=== PATIENT | female | born 1950 | race Caucasian/White ===

== ENCOUNTER → 2016-12-19 | Outpatient (CLI) | payer BC ==
[2014-06-12 23:23] VITALS: BP 141/64
--- NOTE | 2016-12-20 13:52 | KCIC ---
Bilateral digital screening mammograms: Reason for examination: Routine screening. Comparison is made to previous studies dated 03/28/2013 and 11/13/2009. Interpretation was made with the benefit of CAD. The skin and nipples show no abnormalities. No abnormal axillary lymph nodes are seen. The breast parenchyma shows scattered fibroglandular density. (Breast density: Category B.) There continue to be 2 small circumscribed nodular densities in the 10:00 B position of the right breast which are unchanged and likely represent intramammary lymph nodes. There are no new dominant masses, suspicious calcifications or architectural distortions. Impression: No evidence of malignancy. Recommend routine screening. BI-RADS Category 2: Benign. "Our facility is accredited by the [employer] Mammography [employer]." This patient's information has been entered into a reminder system for the patient to be notified with the results of her examination and a target date for the next mammogram. Electronically signed by: Pamela Watt MD (12/20/2016 1:49 PM) [facility]
== END | disposition home or self-care (01) ==
LOC: KCIC MAMMO 10:07
PROVIDERS: ATTEND Obstetrics & Gynecology
DX: Z12.31 Encounter for screening mammogram for malignant neoplasm of breast (principal)
CPT/HCPCS: G0202; 77067

== ENCOUNTER → 2017-03-16 | Outpatient (CLI) | payer BC | END | disposition home or self-care (01) | LOC: KCIC 09:18 | DX: M51.37 Other intervertebral disc degeneration, lumbosacral region (principal) | CPT/HCPCS: 72110 ==

== ENCOUNTER → 2017-12-29 | Outpatient (CLI) | payer BC ==
[2014-06-12 23:23] VITALS: BP 141/64
--- NOTE | 2017-12-29 15:13 | KCIC ---
Bilateral digital screening mammograms: Reason for examination: Routine screening. Comparison is made to previous studies dated 12/19/2016 and 03/28/2013. Interpretation was made with the benefit of CAD. The skin and nipples show no abnormalities. No abnormal axillary lymph nodes are seen. The breast parenchyma shows scattered fibroglandular density. (Breast density: Category B.) There continues to be 2 small circumscribed lesions at the 10:00 B position of the right breast which are unchanged. There are no new dominant masses, suspicious calcifications or architectural distortions. Impression: No evidence of malignancy. Recommend routine screening. BI-RADS Category 2: Benign. "Our facility is accredited by the [employer] Mammography Program." This patient's information has been entered into a reminder system for the patient to be notified with the results of her examination and a target date for the next mammogram. Electronically signed by: Pamela Watt MD (12/29/2017 3:10 PM) [facility]
== END | disposition home or self-care (01) ==
LOC: KCIC MAMMO 10:42
PROVIDERS: ATTEND Obstetrics & Gynecology
DX: Z12.31 Encounter for screening mammogram for malignant neoplasm of breast (principal)
CPT/HCPCS: 77067

== ENCOUNTER 2021-06-12 15:18 | Emergency (ER) | payer MEDICARE, OTHER ==
[~2021-06-12] VITALS: Ht 175.3 cm; Wt 71.0 kg
[2021-06-12 15:29] VITALS: BP 120/57
[2021-06-12] MEDS ORDERED: LIDOCAINE 2% Multi-Dose 20 ML VIAL. IJ ONE (16:00)
[2021-06-12] MEDS ORDERED: DIPHTH,PERTUSS(ACELL),TET TOX 0.5 ML DISP.SYRIN. VAX IM ONE (16:00)
[2021-06-12] MEDS ORDERED: HYDROcodone/APAP 5/325MG 1 TAB TABLET PO ONE (16:15)
[2021-06-12] MEDS ORDERED: ceFAZolin IM 1 GM VIAL IM ONE (16:45)
--- NOTE | 2021-06-12 17:11 | ED.ADGEN ---
Past Medical History Past Medical History: Other Additional Past Medical Histor: in process of ruling out "myesthnia gravis" Past Surgical History: No Surgical History Smoking Status: Never Smoker Alcohol Use: None Drug Use: None General Adult EDM: Chief Complaint: THUMB HPI: HPI: Patient is a 70 year old female coming in for right ankle and left thumb injuries after a fall. Patient states she had one on track when she stepped into a hole and rolled her right ankle and fell forward catching herself on her left hand. Has deformity to thumb and laceration now. She has been able to walk on her ankle and feels like she does sprained it. Last tetanus unknown. Review of Systems: Review of Systems: All other systems within normal limits except for as noted in the HPI Current Medications: Current Medications Medications (Trade) Dose Ordered Sig/Ge Start Time Stop Time Status Last Admin Dose Admin Acetaminophen/ Hydrocodone Bitart (Lortab 5/325) 1 tab 1X ONCE 06/12/21 16:15 06/12/21 16:16 DC 06/12/21 16:19 1 TAB Cefazolin Sodium (Ancef Im) 1 gm 1X ONCE 06/12/21 16:45 06/12/21 16:46 DC 06/12/21 17:00 1 GM Diphtheria/ Tetanus/Acell Pertussis (Boostrix) 0.5 ml ONCE ONCE 06/12/21 16:00 06/12/21 16:01 DC 06/12/21 16:09 0.5 ML Lidocaine HCl (Lidocaine 2% 20ml Vial) 20 ml 1X ONCE 06/12/21 16:00 06/12/21 16:01 DC 06/12/21 16:10 20 ML Allergies: Allergies: Allergies Coded Allergies Type Severity Reaction Last Updated Verified No Known Drug Allergies 03/14/14 No Physical Exam: PE: Constitutional: Well developed, well nourished, no acute distress, non-toxic appearance. [] HENT: Normocephalic, atraumatic, bilateral external ears normal, nose normal. [] Eyes: PERRLA, conjunctiva normal, no discharge. [] Neck: No rigidity, supple, no stridor. [] Cardiovascular: Regular rate and rhythm, brisk cap refill [] Lungs & Thorax: Non labored symmetric respirations, no tachypnea or respiratory distress [] Abdomen: Soft, nondistended. Skin: Warm, dry, no erythema, no rash. [] Back: Unremarkable Extremities: No deformities, range of motion grossly intact, no lower extremity edema. Dorsal deformity of left thumb, volar aspect with a laceration with exposed bone. [] Neurologic: Alert and oriented X 3, no focal deficits noted. [] Psychologic: Affect normal, judgement normal, mood normal. [] Current Patient Data: Vital Signs: Vital Signs Date Time Temp Pulse Resp B/P (MAP) Pulse Ox O2 Delivery O2 Flow Rate FiO2 06/12/21 16:19 18 97 Room Air 06/12/21 15:29 98.4 85 120/57 (78) 98.4 EKG: EKG: [] Heart Score: C/O Chest Pain: No Risk Factors: Risk Factors: DM, Current or recent (<one month) smoker, HTN, HLP, family history of CAD, obesity. Risk Scores: Score 0 - 3: 2.5% MACE over next 6 weeks - Discharge Home Score 4 - 6: 20.3% MACE over next 6 weeks - Admit for Clinical Observation Score 7 - 10: 72.7% MACE over next 6 weeks - Early Invasive Strategies Radiology/Procedures: Radiology/Procedures: Patient at this time is 2% lidocaine without epinephrine via digital block of the left thumb. Wound irrigated to 50 cc NS. Reduction performed and confirmed with x-ray [facility] [address] [place] [address] IMAGING REPORT Signed PATIENT: LEYDI FLORES ACCOUNT: [id number] : 1950 LOCATION: ER AGE: 70 SEX: F EXAM STATUS: DEP ER ORD. PHYSICIAN: MARY JONES MD REASON: inversion PROCEDURE: ANKLE RIGHT 2V Exam: Right ankle 2 views INDICATION: Inversion injury TECHNIQUE: Frontal and lateral views of the right ankle Comparisons: None FINDINGS: Bone mineralization is normal. Joint spaces are well-maintained. Soft tissues are unremarkable. Mild cortical irregularity along the superior aspect of the anterior talar process. IMPRESSION: Cortical irregularity along the superior aspect of the anterior talar process. Correlate with point tenderness for fracture. Electronically signed by: Shannon Fermin MD (06/12/2021 7:27 PM) [facility] DICTATED and SIGNED BY: SHANNON FERMIN MD DATE: 06/12/21 [address] [place] [address] IMAGING REPORT Signed PATIENT: LEYDI FLORES ACCOUNT: [id number] : 1950 LOCATION: ER AGE: 70 SEX: F EXAM STATUS: REG ER ORD. PHYSICIAN: MARY JONES MD REASON: dislocation PROCEDURE: FINGER(S) LEFT XR FINGER(S)_LEFT 2+VIEWS_RT Clinical Indication: Reason: dislocation / Spl. Instructions: / History: Comparison: None. Findings: AP hand and collimated lateral and AP views of the thumb. There is dislocation of the thumb interphalangeal joint. The distal phalanx is posteriorly and laterally displaced with bony overlap of approximately 6 mm. There is soft tissue swelling. No acute fracture is definitely seen. Bony articulations of the hand otherwise maintained. IMPRESSION: There is dislocation of the IP joint of the thumb. Electronically signed by: Rob Mills MD (06/12/2021 5:18 PM) [id number] DICTATED and SIGNED BY: ROB MILLS MD DATE: 06/12/[address] [address] IMAGING REPORT Signed PATIENT: LEYDI FLORES ACCOUNT: [id number] : 1950 LOCATION: ER AGE: 70 SEX: F EXAM STATUS: DEP ER ORD. PHYSICIAN: MARY JONES MD REASON: reduction PROCEDURE: FINGER(S) LEFT Exam: Left finger 3 views INDICATION: Reduction TECHNIQUE: Frontal, lateral and oblique views of the first digit. Comparisons: Radiograph earlier today FINDINGS: Improved alignment at the interphalangeal joint of the first digit. Mild surrounding soft tissue swelling. Bone mineralization is normal. No acute or healed fractures. IMPRESSION: Improved alignment at the first digit interphalangeal joint. Electronically signed by: Shannon Fermin MD (06/12/2021 7:34 PM) [facility] DICTATED and SIGNED BY: SHANNON FERMIN MD DATE: 06/12/211931 Course & Med Decision Making: Course & Med Decision Making Pertinent Labs and Imaging studies reviewed. (See chart for details) Irregularity of the anterior talar bone, patient states she had a previous fracture there and does not currently have any point tenderness in that loca tion. Discussed plan of care with orthopedic doctor, Dr. Lerma, agrees with plan of care to irrigate wound, reduce and start on antibiotics. Will Steri-Strip open part of wound since it is well approximated and to allow drainage of any contaminants [] Dragon Disclaimer: Dragon Disclaimer: This electronic medical record was generated, in whole or in part, using a voice recognition dictation system. Departure Departure Impression: Primary Impression: Open dislocation of thumb Additional Impression: Right ankle sprain Disposition: HOME / SELF CARE / HOMELESS Condition: STABLE Referrals: CASSIE ASHLEY PA-C (PCP) Patient Instructions: RICE - Routine Care for Injuries Additional Instructions: Call Monday morning to follow-up with a hand specialist Number available options are [facility] hand and upper extremity surgery center: [phone] or [facility] plastic surgery specialists: [phone] Scripts Hydrocodone Bit/Acetaminophen (HYDROCODONE-APAP 5-325 ) 1 Tab Tablet 1 TAB PO PRN Q6HRS PRN for PAIN for 3 Days, #12 TAB 0 Refills Prov: MARY JONES MD 06/12/21 Amoxicillin/Potassium Clav (AMOX TR-K CLV 875-125 MG TAB) 1 Each Tablet 1 TAB PO BID for antibiotic, #20 TAB Prov: MARY JONES MD 06/12/21 Problem Qualifiers MARY JONES MD Jun 12, 2021 17:11
--- NOTE | 2021-06-12 17:21 | RAD ---
XR FINGER(S)_LEFT 2+VIEWS_RT Clinical Indication: Reason: dislocation / Spl. Instructions: / History: Comparison: None. Findings: AP hand and collimated lateral and AP views of the thumb. There is dislocation of the thumb interphalangeal joint. The distal phalanx is posteriorly and latera lly displaced with bony overlap of approximately 6 mm. There is soft tissue swelling. No acute fractu re is definitely seen. Bony articulations of the hand otherwise maintained. IMPRESSION: There is dislocation of the IP joint of the thumb. Electronically signed by: Rob Mills MD (06/12/2021 5:18 PM) [id number]
[2021-06-12] MEDS ORDERED: HYDR-2761 PO ×2 (18:08→18:09)
[2021-06-12] MEDS ORDERED: AMOX1TAB11 PO (18:08)
--- NOTE | 2021-06-12 19:29 | RAD ---
Exam: Right ankle 2 views INDICATION: Inversion injury TECHNIQUE: Frontal and lateral views of the right ankle Comparisons: None FINDINGS: Bone mineralization is normal. Joint spaces are well-maintained. Soft tissues are unremarkable. Mild cortical irregularity along the superior aspect of the anterior talar process. IMPRESSION: Cortical irregularity along the superior aspect of the anterior talar process. Correlate with point t enderness for fracture. Electronically signed by: Shannon Jordan MD (06/12/2021 7:27 PM) [facility]
--- NOTE | 2021-06-12 19:36 | RAD ---
Exam: Left finger 3 views INDICATION: Reduction TECHNIQUE: Frontal, lateral and oblique views of the first digit. Comparisons: Radiograph earlier today FINDINGS: Improved alignment at the interphalangeal joint of the first digit. Mild surrounding soft tissue swel ling. Bone mineralization is normal. No acute or healed fractures. IMPRESSION: Improved alignment at the first digit interphalangeal joint. Electronically signed by: Shannon Jordan MD (06/12/2021 7:34 PM) [facility]
[2021-06-28] MEDS ORDERED: HYDR-2761 PO (12:38)
== END 2021-06-12 18:25 | disposition home or self-care (01) ==
LOC: ER 15:18
DX: S93.401A Sprain of unspecified ligament of right ankle, initial encounter (principal); S63.125A Dislocation of interphalangeal joint of left thumb, initial encounter; W18.39XA Other fall on same level, initial encounter; Y93.89 Activity, other specified; Y92.89 Other specified places as the place of occurrence of the external cause; Y99.8 Other external cause status
CPT/HCPCS: 26742; 73140; 73600; 90471; 90715; 96372; 99284; J0690

== ENCOUNTER 2021-06-28 09:56 | Day surgery (SDC) | payer MEDICARE, OTHER ==
[~2021-06-28] VITALS: Ht 175.3 cm; Wt 71.8 kg
[~2021-06-28 09:56] MED LIST: AMOX1TAB11 PO; HYDR-2761 PO; HYDROmorphone 2 MG/ML INJ. IVP PRN; IV RINGERS,LACTATED 1000ML 1,000 ML IV SCH; MORPHINE SULFATE 2 MG/ML INJ. IVP PRN; PROCHLORPERAZINE 10 MG/2 ML VIAL. IVP PRN; ceFAZolin SODIUM IV Push 1 GM VIAL. IVP PRN; fentaNYL PF VIAL 100 MCG/2 ML VIAL IVP PRN
[2021-06-28 10:26] VITALS: BP 162/77
[2021-06-28] MEDS ORDERED: ONDANSETRON PF 4 MG/2 ML VIAL. ONE (10:27)
[2021-06-28] MEDS ORDERED: PROPOFOL 10 MG/ML (20ML) VIAL. IV ONE (10:27)
[2021-06-28] MEDS ORDERED: LIDOCAINE 2% PF 5 ML VIAL. ONE (10:27)
[2021-06-28] MEDS ORDERED: DEXAMETHASONE SOD PHOS 4 MG/ML VIAL ONE (10:27)
[2021-06-28] MEDS ORDERED: fentaNYL PF VIAL 100 MCG/2 ML VIAL ONE (10:43)
[2021-06-28] MEDS ORDERED: LIDOCAINE 1%/EPI 1:100,000 20 ML VIAL. ONE (11:32)
[2021-06-28] MEDS ORDERED: ePHEDrine PF IN SALINE 50 MG/10 ML SYRINGE. IV ONE (11:53)
[2021-06-28] MEDS ORDERED: ceFAZolin SODIUM IV Push 1 GM VIAL. IVP ONE (11:53)
[2021-06-28] MEDS ORDERED: GLYCOPYRROLATE 1 MG/5 ML VIAL. ONE (11:53)
[2021-06-28] MEDS ORDERED: SEVOFLURANE 31 TO 60 MINUTES. IH ONE (12:04)
[2021-06-28] MEDS ORDERED: PHENYLEPHRINE in 0.9% NACL PF 1 MG/10 ML SYRINGE. IV ONE (12:14)
[2021-06-28] MEDS ORDERED: BUPIVACAINE-EPI 0.25%-1:200000 MPF 30 ML VIAL. ONE (12:22)
--- NOTE | 2021-06-28 12:36 | PDOC4 ---
Operative Note Operative Note Operative Note: Preoperative Diagnosis: Back mass x2 Postoperative Diagnosis: Same Procedure: Excision of back mass x2, 5 X 3 cm, 4 X 2 cm, no margins, subcutaneous Surgeon: Francisco Fundraising Director: Candy WAGGONER Anesthesia: General EBL: 10 ml Specimen: Upper back mass to pathology, mid back mass to pathology Drains: None Complications: None Indication: The patient is a 70-year-old female who is referred because of 2 bothersome back masses. Examination shows subcutaneous masses measuring 5 x 3 and 4 x 2 cm consistent with lipomas. One is located in the superior back near the neck. The second is more inferior to the left of midline. The patient requests excision. The risks of surgery were discussed which include bleeding, infection, recurrence, pain, anesthetic risk, potential need for additional alma rosa adrien procedure. She understands and would like to proceed. Description: The patient was taken the operating room and placed supine on the operating table. General anesthesia was performed. The back was prepped with ChloraPrep and draped with sterile towels, sheets, and an Ioban. We began with the superiorly located mass. Incision was made directly overlying the mass. Cautery dissection was carried down into the subcutaneous tissues. The mass was comprised of lobulated adipose tissue consistent with a lipoma. Due to its architecture was essentially retrieved piecemeal. The total dimensions measured 4 x 2 cm and there were no margins of excision. Hemostasis was achieved with cautery. Subcutaneous tissue was closed with 3-0 Vicryl and skin was appro ximated with 4-0 Monocryl. In a similar manner an incision was made directly overlying the inferiorly located mass. Cautery dissection was carried down to subcutaneous tissues. Similar to before the mass was comprised of lobulated adipose tissue. This also was retrieved essentially piecemeal. The total dimensions measured 5 x 3 cm with no margins excised. The mass was located in the subcutaneous tissues. Hemostasis was achieved with cautery. Subcutaneous tissue was closed with 3-0 Vicryl. Skin was closed with 4 Monocryl. Steri- Strips and sterile dressings were applied. The patient tolerated the procedure well and was sent to the recovery room in stable condition. At the end the case all counts were correct BRANDON VOGT MD Jun 28, 2021 12:36
[2021-06-28] MEDS ORDERED: HYDR-2761 PO (12:38)
--- NOTE | 2021-06-28 12:40 | DISCH ---
DISCHARGE INSTRUCTIONS Condition on Discharge Condition on Discharge: Unstable Activity After Discharge Activity Instructions for Disc: Activity as tolerated Diet after Discharge Diet after Discharge: Regular Wound Incision Care Wound/Incision Care: Other, see below (keep dressing clean and dry X 72 hours, may then remove and shower) Follow-Up Follow up with: Dr Vogt in office in 2 weeks, call for appt [phone] BRANDON VOGT MD Jun 28, 2021 12:40
[2021-06-28 13:10] VITALS: BP 118/78
[2021-06-28] MEDS ORDERED: HYDROcodone/APAP 5/325MG 1 TAB TABLET PO ONE (13:15)
--- NOTE | 2021-06-29 17:10 | PATHOLOGY ---
[facility] Accession Number: [id number] . 01 Material submitted: . PART A: back - UPPER BACK MASS. Modifiers: upper PART B: back - MID BACK MASS. Modifiers: mid . 01 Clinical history: . MASS TO BACK EXCISION OF BACK MASS . 02 Diagnosis: A. Segments of fibroadipose tissue, upper back mass: - Lipoma. . B. Segments of fibroadipose tissue, mid back mass: - Lipoma. . (JPM:enoch; 06/29/2021) MBR 06/29/2021 1319 Local . 02 Electronically signed: . Aron Vieira MD, Pathologist NPI- [id number] . 01 Gross description: . A. The specimen is received in formalin, labeled "Ayse, Karli, upper back mass" and consists of multiple previously disrupted, heavily fragmented fatty irregular tissues aggregating 6.0 x 5.0 x 1.8 cm. Sectioning reveals fatty, glistening and homogenous cut surfaces. Accounting Consultant sections are submitted in 2 cassettes. . B. The specimen is received in formalin, labeled "Ayse, Karli, mid back mass" and consists of multiple previously disrupted and fragmented fatty irregular tissues aggregating 5.4 x 4.5 x 1.4 cm. Sectioning reveals fatty, glistening and homogenous cut surfaces. Accounting Consultant sections are submitted in 2 cassettes.(NUNAM IQUA; 06/28/2021) DKA/DKA 06/28/2021 1713 Local . 02 Pathologist provided ICD-10: D17.1 . 02 CPT . 286909, [id number] Specimen Comment: A courtesy copy of this report has been sent to [phone], [phone] Specimen Comment: [id number] Specimen Comment: Report sent to / DR ASHLEY Performed at: 01 [facility] [place] [id number] [facility] [address], [place], [place] [id number] MD Sammy Gary MD Phone: [phone] Performed at: 02 [facility] [address], [place] [id number] MD Aron Vieira MD Phone: [phone]
== END 2021-06-28 13:30 | disposition home or self-care (01) ==
LOC: SURG 09:56
PROVIDERS: ATTEND Surgery
DX: D17.1 Benign lipomatous neoplasm of skin and subcutaneous tissue of trunk (principal); R22.2 Localized swelling, mass and lump, trunk; Z79.899 Other long term (current) drug therapy; Z98.890 Other specified postprocedural states
CPT/HCPCS: 21931; A4364; A4930; A6219; J0690; J1100; J2370; J2405; J2704; J3010; J3490; 88304; A4452